=== PATIENT | female | born 2000 | race Caucasian/White ===

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

== ENCOUNTER 2019-11-28 16:02 | Emergency (ER) | payer MEDICAID ==
[2019-11-28 16:15] VITALS: BP 115/78; PULSE 75
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
--- NOTE | 2019-11-29 11:15 | CR ---
Nasal Bone Min 3V CLINICAL HISTORY: Trauma FINDINGS: Patient has a slightly depressed fracture of the distal nasal bones extending to the right. There is a rounded radiopacity over the left orbit. This was found to be a hair clasp. IMPRESSION: Slightly depressed fracture of the right nasal bones
== END 2019-11-28 17:34 | disposition home or self-care (01) ==
LOC: JP.ED 16:02
DX: S02.2XXA Fracture of nasal bones, initial encounter for closed fracture (principal); F17.210 Nicotine dependence, cigarettes, uncomplicated; Y04.0XXA Assault by unarmed brawl or fight, initial encounter
CPT/HCPCS: 70160; 70160-26; 99283; 99283-25

== ENCOUNTER 2020-02-18 13:01 | Emergency (ER) | payer MEDICAID ==
[2020-02-18 13:37] VITALS: BP 125/67; PULSE 76
--- NOTE | 2020-02-18 13:45 | EDM.PDOC ---
ED HPI GENERAL MEDICAL PROBLEM - General Chief Complaint: Back Pain or Injury Stated Complaint: LOWER BACK PAIN Time Seen by Provider: 02/18/20 13:45 Source of Information: Reports: Patient - History of Present Illness INITIAL COMMENTS - FREE TEXT/NARRATIVE: Patient has a history for recurrent acute on chronic back pain. Patient has had MRIs in the past and offered Neurosurgery for MRI findings and back pain. Patient was at the time. Patient has a young son whom she lifts and carries around while caring for him. The child jumped on her back earlier today and back pain got worse with left leg radicular symptoms. Patient has been taking Tylenol but does not recall any other physical therapy stretches or strength training for previous back pain concerns. Patient is again approximately 6 weeks at this time per patient history. Patient has not establish OB care for current . Patient has not applied ice or heat to the area. patient denies numbness/tingling or weakness but radiating pain down posterior left leg and side of foot. 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 Musculoskeletal History: Reports: Fracture, Other (See Below) Other Musculoskeletal History: 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 Neurological History: Reports: Migraines Psychiatric History: Reports: ADD, ADHD, Anxiety, Depression, Mood Swings, Psych Hospitalization(s), Suicide Attempt - Infectious Disease History Infectious Disease History: Reports: Other (See Below) Other Infectious Disease History: STD - Past Surgical History Head Surgeries/Procedures: Reports: None HEENT Surgical History: Reports: None Respiratory Surgical History: Reports: None Neurological Surgical History: Reports: None Musculoskeletal Surgical History: Reports: None Social & Family History - Family History Family Medical History: Noncontributory OBGYN: Reports: Other (See Below) Other OBGYN Family History: mother had preeclampsia - Caffeine Use Caffeine Use: Reports: Soda ED ROS GENERAL - Review of Systems Review Of Systems: Comprehensive ROS is negative, except as noted in HPI. ED EXAM,LOWER BACK PAIN/INJURY - Physical Exam Exam: See Below Exam Limited By: No Limitations General Appearance: Alert, WD/WN, No Apparent Distress Eye Exam: Bilateral Eye: EOMI Ears: Hearing Grossly Normal Throat/Mouth: Normal Voice, No Airway Compromise Respiratory/Chest: No Respiratory Distress, Lungs Clear, Normal Breath Sounds Cardiovascular: Normal Peripheral Pulses, Regular Rate, Rhythm Extremities: Normal Inspection. No: Normal Range of Motion, Non-Tender (left lwoer back and SI joint) Neurological: Alert, Normal Mood/Affect, Normal Dorsiflexion, CN II-XII Intact, Normal Plantar Flexion, No Motor/Sensory Deficits, Oriented x 3. No: Normal Gait (guarded) Psychiatric: Normal Affect, Normal Mood Skin Exam: Warm, Dry, Intact, Normal Color, No Rash Course - Vital Signs Last Recorded V/S: Last Vital Signs Temp 35.6 C L 02/18/20 14:05 Pulse 76 02/18/20 14:05 Resp 12 02/18/20 14:05 BP 125/67 02/18/20 14:05 Pulse Ox 98 02/18/20 14:05 Departure - Departure Time of Disposition: 13:51 Disposition: Home, Self-Care 01 Clinical Impression: Pain of back and lower extremity, Sciatica of left side - Discharge Information Instructions: Piriformis Syndrome, Piriformis Syndrome Rehab-SportsMed, Radicular Pain, Sciatica, What You Need to Know About Chronic Back Pain, How to Use Cold Therapy Referrals: PCP,None [Primary Care Provider] - Forms: ED Department Discharge Additional Instructions: BACK SCIATICA 1. LIMIT LIFTING (<10 LBS/BENDING/TWISTING) X 48 HOURS. 2. TAKE ABOVE MEDICATIONS DIRECTED UNLESS RE-CHECK IN CLINIC 3. PREDNISONE 20 MG DAILY x 5 days FOR INFLAMMATION AND RADICULAR NERVE PAIN. 4. TYLENOL 500-1000MG every 6-8 hours for mild to moderate pain. 6. ICE 15-20MIN ALTERNATE WITH HEAT 15-20 MIN 3-4 TIMES PER DAY. 7. CALL [facility] to ESTABLISH OB CARE (outreach appointment available in Agency. 8. RETURN TO ER FOR WORSENING OR NEW SYMPTOMS, LOSS OF BLADDER/BOWL CONTROL, GROIN NUMBNESS, FEVER, TROUBLE BREATHING, NUMBNESS/TINGLING/WEAKNESS IN LOWER EXTREMITIES, ABDOMINAL PAIN, CONCERNS OR CHANGES. THE DISCHARGE INSTRUCTIONS ARE INTENDED A COMPLEMENT TO AND NOT A REPLACEMENT FOR THE VERBAL INSTRUCTIONS THAT I HAVE PROVIDED YOU TODAY. AFTER GOING OVER THE PLAN OF CARE TONIGHT AND PROVIDING YOU WITH THE VERBAL INSTRUCTIONS AT DISCHARGE YOU HAVE HAD THE OPPORTUNITY TO ASK FURTHER QUESTIONS AND TO CLARIFY UNCERTAINTIES. THANK YOU FOR ALLOWING US TO ASSIST WITH YOUR MEDICAL CONCERNS AND NEEDS. Sciatica What is sciatica? Sciatica is a form of low back pain that runs down your leg, causing pain, numbness, or tingling in the leg. How does it occur? The sciatic nerve is formed by a group of nerves that run from the lower spine down the leg to the foot. Anything that causes irritation along the course of the nerve can cause sciatica. The most common causes are: overuse of your back (lifting something that is too heavy or doing work that uses your back much more than you are used to) injury to your back (slipping and falling, or having something hit your back). Overuse or injury can cause muscle tension or spasm, back sprains, ligament or muscle tears, or joint problems, all of which can irritate the sciatic nerve. Low back pain and sciatica can also be caused by infections, tumors, a ruptured disk in your back, osteoporosis, spondylosis (hardening and stiffening of the spine), or spinal stenosis (narrowing of the spinal canal from bone or soft tissue). What are the symptoms? The main symptom is pain that shoots down from the lower back and buttocks to your leg. You may also have numbness or tingling in your leg. Sometimes your leg muscles are weak. How is it diagnosed? Your healthcare provider will ask about your symptoms and examine your back. If your provider thinks you might have an infection or a bone disease, you may have some lab tests or X-rays, a CT scan, or an MRI. Most people do not need X-rays or other types of scans in the early part of their treatment. If the pain does not get better in a few weeks, or if the symptoms get worse, then special tests may be needed How is it treated? Most people with low back pain and sciatica get better no matter what they do. Often nonprescription medicines for pain and inflammation, such as aspirin, ibuprofen, or naproxen, can ease the pain. Talk to your healthcare provider about whether you should take these medicines. Your provider may prescribe stronger pain medicine or other types of medicines. Your provider may prescribe oral steroids or you may be given a steroid shot into your spine to control pain and inflammation. Ice packs or a heating pad may help reduce pain. (Do not sleep on a heating pad because it could cause rodriguez.) Your provider may also suggest physical therapy. A program of gentle exercise may speed your recovery. If you continue to have symptoms, you may need to have surgery. However, most people who have herniated disks do not need an operation. How long will the effects last? People who have sciatica with back pain recover more slowly than people with other kinds of back pain. However, you will probably begin feeling better within a few days of a back strain or injury if you don't strain your back again and if you take some medicine for pain and inflammation. Often the pain is gone in a week or two. Contact your provider right away if: You have numbness or tingling in the inner part of your thighs (in a saddle distribution). You have any new or increasing weakness in your legs. Call your healthcare provider for a follow-up appointment if: The pain is not getting better. You have new symptoms. How can I take care of myself? If you have low back pain and sciatica, make sure you do not overuse your back. Strict bed rest is no longer recommended. It is better to do your usual activities but: Avoid lifting more than 5 pounds. Avoid frequent bending or other activities that make the pain worse. How can I help prevent sciatica? If you have had back pain and sciatica, you are likely to get it again. To help prevent it in the longterm: Lose weight if you are overweight. Do regular aerobic exercise to keep your back and abdominal muscles in shape (this can be as simple as walking), Learn to lift properly. Bend your knees and hips and keep your back straight when you lift a heavy object. BACK PAIN GENERAL INFORMATION: Back pain is often caused by improper lifting. Prevention is the gunn! See below for proper body mechanics instruction. GOAL: To minimize back pain and to allow early return to normal activities. TREATMENT: 1. Bedrest is very important for at least one to two days after a back injury to allow initial healing to occur. 2. If you find that it helps, you may apply crushed ice in a plastic bag, approximately every other 1/2 hour during the first 24-48 hours after injury. The skin should be protected with a towel between the skin and the cold pack. After 48 hours apply heat to the area. 3. You may find standing or lying to be more comfortable than sitting. 4. Take medication as directed. If any of the following warning signs occur, call your physician immediately or return to the [facility]: " radiation of pain " numbness " tingling of arms or legs " Loss of function of arms or legs " Loss of function of bowel or bladder BACK MECHANICS AND LIFTING SAFELY The safe lift is one that will allow you to accomplish the job with the least amount of strain. GENERAL RULES FOR LIFTING: " Inspect the object, look for sharp edges, grease or moisture. Decide how to hold it. " Clear a path to be sure there is no debris that might trip you. " Plan where and how the object will be placed. " Ask for help if you are not sure you can handle the object. " Hold the object firmly and close to your body while carrying it. " To tack picker the object, bend your knees, not your back; keep your back straight while lifting. " Lift with your legs and come fully upright. " Never twist while you lift. " Poor posture increases stress and strain on muscles and joints in your lower back and neck. " When lifting heavy objects get others to help you and use assistive devices such as a winch, lola or forklift. Low Back Pain What is low back pain? Low back pain is pain and stiffness in the lower back. It is one of the most common reasons people miss work. How does it occur? Low back pain is usually caused when a ligament or muscle holding a vertebra in its proper position is strained. Vertebrae are bones that make up the spinal column through which the spinal cord passes. When these muscles or ligaments become weak, the spine loses its stability, resulting in pain. Because nerves reach all parts of the body from the spinal cord, back problems can lead to pain or weakness in almost any part of the body. Low back pain can occur if your job involves lifting and carrying heavy objects, or if you spend a lot of time sitting or standing in one position or bending over. It can be caused by a fall or by unusually strenuous exercise. It can be brought on by the tension and stress that cause headaches in some people. It can even be brought on by violent sneezing or coughing. People who are overweight may have low back pain because of the added stress on their back. Back pain may occur when the muscles, joints, bones, and connective tissues of the back become inflamed as a result of an infection or an immune system problem. Arthritic disorders as well as some congenital and degenerative conditions may cause back pain. Back pain accompanied by loss of bladder or bowel control, difficulty in moving your legs, or numbness or tingling in your arms or legs may indicate an injury to your spine and nerves, which requires immediate medical treatment. What are the symptoms? Symptoms include: pain in the back or legs stiffness and limited motion. The pain may be continuous or may occur only in certain positions. It may be agg ravated by coughing, sneezing, bending, twisting, or straining during a bowel movement. The pain may occur in only one spot or may spread to other areas, most commonly down the buttocks and into the back of the thigh. A low back strain typically does not produce pain past the knee into the calf or foot. Tingling or numbness in the calf or foot may indicate a herniated disk or pinched nerve. Be sure to see your health care provider if: You have weakness in your leg, especially if you cannot lift your foot, because this may be a sign of nerve damage. You have new bowel or bladder problems as well as back pain, which may be a sign of severe injury to your spinal cord. You have pain that gets worse despite treatment. How is it diagnosed? Your health care provider will review your medical history and examine you. He or she may order x- rays. In certain situations a myelogram, CT scan, or MRI may be ordered. How is it treated? The following are ways to treat low back pain: Using a heating pad or hot water bottle. Resting in bed on a firm mattress. Often it helps to lie on your back with your knees raised. However, some people prefer to lie on their side with their knees bent. Taking aspirin, ibuprofen, or other anti-inflammatory medications; muscle relaxants; or other pain medications if recommended by your health care provider. Having your back massaged by a trained person. Having traction, if recommended by your provider. Wearing a belt or corset to support your back. Talking with a counselor, if your back pain is related to tension caused by emotional problems. Beginning a program of physical therapy, or exercising on your own. Begin a regular exercise program to gently stretch and strengthen your muscles as soon as you can. Your health care provider or physical therapist can recommend exercises that will not only help you feel better but will strengthen your muscles and help avoid back trouble later. When the pain subsides, ask your health care provider about starting an exercise program such as the following: Exercise moderately every day, using stretching and warm-up exercises suggested by your provider or physical therapist. Exercise vigorously for about 30 minutes two or three times a week by walking, swimming, using a stationary bicycle, or doing low-impact aerobics. Participating regularly in an exercise program will not only help your back, it will also help keep you healthier overall. How long will the effects last? The effects of back pain last as long as the cause exists or until your body recovers from the strain, usually a day or two but sometimes weeks. How can I take care of myself? In addition to the treatment described above, keep in mind these suggestions: Use an electric heating pad on a low setting (or a hot water bottle wrapped in a towel to avoid burning yourself) for 20 to 30 minutes. Don't let the heating pad get too hot, and don't fall asleep with it. You could get a burn. Try putting an ice pack wrapped in a towel on your back for 20 minutes, one to four times a day. Set an alarm to avoid frostbite from using the ice pack too long. Put a pillow under your knees when you are lying down. Sleep without a pillow under your head. Lose weight if you are overweight. Practice good posture. Stand with your head up, shoulders straight, chest forward, weight balanced evenly on both feet, and pelvis tucked in. Pain is the best way to police judge the pace you should set in increasing your activity and exercise. Minor discomfort, stiffness, soreness, and mild aches need not interfere with activity. However, limit your activities temporarily if: Your symptoms return. The pain increases when you are more active. The pain increases within 24 hours after a new or higher level of activity. When can I return to my normal activities? Everyone recovers from an injury at a different rate. Return to your activities will be determined by how soon your back recovers, not by how many days or weeks it has been since your injury has occurred. In general, the longer you have symptoms before you start treatment, the longer it will take to get better. The goal of rehabilitation is to return you to your normal activities as soon as is safely possible. If you return too soon you may worsen your injury. It is important that you have fully recovered from your low back pain before you return to any strenuous activity. You must be able to have the same range of motion that you had before your injury. You must be able to walk and twist without pain. What can I do to help prevent low back pain? You can reduce the strain on your back by doing the following: Don't push with your arms when you move a heavy object. Turn around and push backwards so the strain is taken by your legs. Whenever you sit, sit in a straight-backed chair and hold your spine against the back of the chair. Bend your knees and hips and keep your back straight when you lift a heavy object. Avoid lifting heavy objects higher than your waist. Hold packages you carry close to your body, with your arms bent. Use a footrest for one foot when you stand or sit in one spot for a long time. This keeps your back straight. Bend your knees when you bend over. Sit close to the pedals when you drive and use your seat belt and a hard backrest or pillow. Lie on your side with your knees bent when you sleep or rest. It may help to put a pillow between your knees. Put a pillow under your knees when you sleep on your back. Raise the foot of the bed 8 inches to discourage sleeping on your stomach unless you have other problems that require that you keep your head elevated. To rest your back, hold each of these positions for 5 minutes or longer: Lie on your back, bend your knees, and put pillows under your knees. Lie on your back, put a pillow under your neck, bend your knees to a 90- degree angle, and put your lower legs and feet on a chair. Lie on your back, bend your knees, and bring one knee up to your chest and hold it there. Repeat with the other knee, then bring both knees to your chest. When holding your knee to your chest, grab your thigh rather than your lower leg to avoid over flexing your knee. Developed by Tereza Guzman RN, [place], and [facility] [employer]. Sepsis Event Note (ED) - Focused Exam Vital Signs: Vital Signs Temp Pulse Resp BP Pulse Ox 02/18/20 14:05 35.6 C L 76 12 125/67 98 02/18/20 13:34 35.6 C L 76 12 125/67 98
== END 2020-02-18 14:10 | disposition home or self-care (01) ==
LOC: JP.ED 13:01
DX: O99.89 Other specified diseases and conditions complicating pregnancy, childbirth and the puerperium (principal); M54.42 Lumbago with sciatica, left side; Z88.8 Allergy status to other drugs, medicaments and biological substances; Z3A.01 Less than 8 weeks gestation of pregnancy
CPT/HCPCS: 99283

== ENCOUNTER 2020-02-18 21:56 | Emergency (ER) | payer MEDICAID ==
[2020-02-18 22:24] VITALS: BP 119/89; PULSE 80
[2020-02-18] MEDS ORDERED: Lidocaine 2% Viscous Solution 100 ML Bottle MUCMEM PRN (22:37)
[2020-02-18] MEDS ORDERED: Lidocaine 2% Viscous Solution 15 ML Cup ONE (22:45)
[2020-02-18] MEDS ORDERED: Lidocaine 2% Viscous Solution 15 ML Cup PO ONE (22:46)
--- NOTE | 2020-02-18 22:48 | EDM.PDOC ---
ED HPI GENERAL MEDICAL PROBLEM - General Chief Complaint: ENT Problem Stated Complaint: Q TIP STUCK IN LEFT EAR Time Seen by Provider: 02/18/20 22:35 Source of Information: Reports: Patient History Limitations: Reports: No Limitations - History of Present Illness INITIAL COMMENTS - FREE TEXT/NARRATIVE: Patient took a shower this afternoon and was cleaning her ears with a q tip when the q tip head remained stuck in her left ear. Patient has muffled hearing and pain. 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 Musculoskeletal History: Reports: Fracture, Other (See Below) Other Musculoskeletal History: 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 Neurological History: Reports: Migraines Psychiatric History: Reports: ADD, ADHD, Anxiety, Depression, Mood Swings, Psych Hospitalization(s), Suicide Attempt - Infectious Disease History Infectious Disease History: Reports: Other (See Below) Other Infectious Disease History: STD - Past Surgical History Head Surgeries/Procedures: Reports: None HEENT Surgical History: Reports: None Respiratory Surgical History: Reports: None Neurological Surgical History: Reports: None Musculoskeletal Surgical History: Reports: None Social & Family History - Family History Family Medical History: Noncontributory OBGYN: Reports: Other (See Below) Other OBGYN Family History: mother had preeclampsia - Tobacco Use Smoking Status *Q: Never Smoker - Caffeine Use Caffeine Use: Reports: Soda - Recreational Drug Use Recreational Drug Use: No ED ROS ENT - Review of Systems Review Of Systems: Comprehensive ROS is negative, except as noted in HPI. ED EXAM, ENT - Physical Exam Exam: See Below Exam Limited By: No Limitations General Appearance: Alert, WD/WN, Mild Distress (anxious about q tip removal) Eye Exam: Bilateral Eye: EOMI, Normal Inspection Ears: Hearing Loss (left ear due to FB ), Canal Foreign Body (left auditory canal white q tip head noted) Mouth/Throat: Normal Inspection Neck: Normal Inspection, Supple, Full Range of Motion Respiratory/Chest: No Respiratory Distress Cardiovascular: Normal Peripheral Pulses ED ENT PROCEDURES - Foreign Body Removal Consent Obtained: Patient Performing Doctor:: Gita Lin Foreign [facility] Other Location Comment:: Q tip head in left auditory canal Anesthesia Type: Other (see below) (Viscus Lidocaine) Findings: Viscus Lidocaine was instilled in the left ear fro 15-20 minutes: Alligator forceps used to grab and remove q tip head. Patient tolerated well. No bleeding or injury. Course - Vital Signs Last Recorded V/S: Last Vital Signs Temp 36.6 C 02/18/20 22:25 Pulse 80 02/18/20 22:25 Resp 17 02/18/20 22:25 BP 119/89 02/18/20 22:25 Pulse Ox 98 02/18/20 22:25 - Orders/Labs/Meds Meds: Medications Discontinued Medications Generic Name Dose Route Start Last Admin Trade Name Freq PRN Reason Stop Dose Admin Lidocaine HCl 3 ml 02/18/20 22:37 Xylocaine 2% Viscous MUCMEM ASDIRECTED PRN pain Lidocaine HCl 15 ml 02/18/20 22:46 02/18/20 22:47 Xylocaine 2% Viscous PO 02/18/20 22:47 15 ml ONETIME ONE Administration Lidocaine HCl Confirm 02/18/20 22:45 02/18/20 22:57 Xylocaine 2% Viscous Administered 02/18/20 22:46 Not Given Dose 15 ml .ROUTE .STK-MED ONE Departure - Departure Time of Disposition: 23:03 Disposition: Home, Self-Care 01 Clinical Impression: Ear foreign body - Discharge Information Instructions: Ear Foreign Body Referrals: PCP,None [Primary Care Provider] - Forms: ED Department Discharge Sepsis Event Note (ED) - Evaluation Sepsis Screening Result: No Definite Risk - Focused Exam Vital Signs: Vital Signs Temp Pulse Resp BP Pulse Ox 02/18/20 22:25 36.6 C 80 17 119/89 98 02/18/20 22:23 36.6 C 80 17 119/89 98
== END 2020-02-18 23:13 | disposition home or self-care (01) ==
LOC: JP.ED 21:56
DX: T16.2XXA Foreign body in left ear, initial encounter (principal); Z88.8 Allergy status to other drugs, medicaments and biological substances
CPT/HCPCS: 69200; 99282; A9270

== ENCOUNTER 2020-02-23 17:37 | Emergency (ER) | payer MEDICAID ==
[2020-02-23 18:20] VITALS: BP 119/71; PULSE 78
[2020-02-23] MEDS ORDERED: Acetaminophen 500 MG Tab PO ONE (18:22)
--- NOTE | 2020-02-23 18:28 | EDM.PDOC ---
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 Thinks she is Rh type +. Has an OB appt tomorrow. Is under a lot of family stress. Thinks she is 7 weeks gestation. Onset: Gradual Duration: Day(s):, Waxing/Waning Location: Reports: Pelvis Quality: Reports: Other (cramping) Severity: Mild Improves with: Reports: None Worsens with: Reports: Other (unknown) Context: Reports: Other Associated Symptoms: Reports: No Other Symptoms Treatments BREAKDOWN PERSON: Reports: Other (see below) (none) - Related Data Allergies Allergy/AdvReac Type Severity Reaction Status Date / Time drospirenone [From SUSHILA (28)] Allergy Hives Verified 02/18/20 22:25 ethinyl estradiol Allergy Hives Verified 02/18/20 22:25 [From SUSHILA (28)] Home Meds: Home Meds Sertraline [Zoloft] 50 mg PO DAILY 02/23/20 [History] Past Medical History HEENT History: Reports: Otitis Media Respiratory History: Reports: Croup Genitourinary History: Reports: Renal Calculus 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: Reports: Other 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: ELIER-06/04/2018 Musculoskeletal History: Reports: Fracture, Other (See Below) Other Musculoskeletal History: 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 Neurological History: Reports: Migraines Psychiatric History: Reports: ADD, ADHD, Anxiety, Depression, Mood Swings, Psych Hospitalization(s), Suicide Attempt - Infectious Disease History Infectious Disease History: Reports: Other (See Below) Other Infectious Disease History: STD - Past Surgical History Head Surgeries/Procedures: Reports: None HEENT Surgical History: Reports: None Respiratory Surgical History: Reports: None Female Surgical History: Reports: Section Neurological Surgical History: Reports: None Musculoskeletal Surgical History: Reports: None Social & Family History - Family History Family Medical History: Noncontributory OBGYN: Reports: Other (See Below) Other OBGYN Family History: mother had preeclampsia - Tobacco Use Smoking Status *Q: Never Smoker - Caffeine Use Caffeine Use: Reports: Coffee, Soda - Recreational Drug Use Recreational Drug Use: No ED ROS GENERAL - Review of Systems Review Of Systems: See Below Constitutional: Reports: No Symptoms HEENT: Reports: No Symptoms Respiratory: Reports: No Symptoms Cardiovascular: Reports: No Symptoms GI/Abdominal: Reports: No Symptoms : Reports: Other (uterine cramping) Skin: Reports: No Symptoms ED EXAM, GI/ABD - Physical Exam Exam: See Below Exam Limited By: No Limitations General Appearance: Alert, WD/WN, No Apparent Distress Eyes: Bilateral: Normal Appearance Ears: Normal External Exam, Hearing Grossly Normal, Normal TMs Nose: Normal Inspection, No Blood Throat/Mouth: Normal Inspection, Normal Lips, Normal Oropharynx, Normal Voice, No Airway Compromise Head: Atraumatic, Normocephalic Neck: Normal Inspection Respiratory/Chest: No Respiratory Distress, Lungs Clear, Normal Breath Sounds, No Accessory Muscle Use Cardiovascular: Regular Rate, Rhythm, No Edema GI/Abdominal Exam: Soft, Non-Tender, No Distention Back Exam: CVA Tenderness (R), CVA Tenderness (L) Extremities: Normal Inspection, No Pedal Edema Neurological: Alert, Oriented, Normal Cognition Skin Exam: Warm, Dry, Intact, Normal Color, No Rash Course - Vital Signs Last Recorded V/S: Last Vital Signs Temp 35.4 C L 02/23/20 18:18 Pulse 78 02/23/20 18:18 Resp 12 02/23/20 18:18 BP 119/71 02/23/20 18:18 Pulse Ox 98 02/23/20 18:18 - Orders/Labs/Meds Labs: Laboratory Tests 02/23/20 02/23/20 Range/Units 18:30 19:13 HCG, Quant 50989 H (0-6) mIU/mL Urine Color Yellow (YELLOW) Urine Appearance Cloudy A (CLEAR) Urine pH 7.0 (5.0-8.0) Ur Specific Carlos 1.025 (1.008-1.030) Urine Protein Negative (NEGATIVE) mg/dL Urine Glucose (UA) Negative (NEGATIVE) mg/dL Urine Ketones Negative (NEGATIVE) mg/dL Urine Occult Blood Trace-intact H (NEGATIVE) Urine Nitrite Negative (NEGATIVE) Urine Bilirubin Negative (NEGATIVE) Urine Urobilinogen 1.0 (0.2-1.0) EU/dL Ur Leukocyte Esterase Negative (NEGATIVE) Urine RBC 0-5 (0-5) Urine WBC 0-5 (0-5) Ur Epithelial Cells Moderate Amorphous Sediment Not seen Urine Bacteria Moderate Urine Mucus Many Meds: Medications Discontinued Medications Generic Name Dose Route Start Last Admin Trade Name Freq PRN Reason Stop Dose Admin Acetaminophen 1,000 mg 02/23/20 18:22 02/23/20 18:49 Tylenol Extra Strength PO 02/23/20 18:23 1,000 mg ONETIME ONE Administration Departure - Departure Time of Disposition: 19:38 Disposition: Home, Self-Care 01 Condition: Good Clinical Impression: First-trimester bleeding - Discharge Information *PRESCRIPTION DRUG MONITORING PROGRAM REVIEWED*: Not Applicable *COPY OF PRESCRIPTION DRUG MONITORING REPORT IN PATIENT CATHY: Not Applicable Referrals: Juli Barksdale CNM [Primary Care Provider] - Additional Instructions: Drink ample fluids. Acetaminophen as needed for pain relief. Recheck with your provider tomorrow as scheduled. Return if a lot worse. Sepsis Event Note (ED) - Evaluation Sepsis Screening Result: No Definite Risk - Focused Exam Vital Signs: Vital Signs Temp Pulse Resp BP Pulse Ox 02/23/20 18:18 35.4 C L 78 12 119/71 98
== END 2020-02-23 20:34 | disposition home or self-care (01) ==
LOC: JP.ED 17:37
DX: O20.9 Hemorrhage in early pregnancy, unspecified (principal); F32.9 Major depressive disorder, single episode, unspecified; Z79.899 Other long term (current) drug therapy; Z88.8 Allergy status to other drugs, medicaments and biological substances
CPT/HCPCS: 36415; 81001; 84702; 99284; A9270

== ENCOUNTER 2020-03-11 02:50 | Emergency (ER) | payer MEDICAID ==
[2020-03-11 03:12] VITALS: BP 116/75; PULSE 77
[2020-03-11] MEDS ORDERED: Ondansetron 4 MG Tab.DIS PO ONE ×2 (03:23→04:28)
--- NOTE | 2020-03-11 04:25 | EDM.PDOC ---
ED HPI GENERAL MEDICAL PROBLEM - General Chief Complaint: Gastrointestinal Problem Stated Complaint: TROUBLE EATING/DRINKING Time Seen by Provider: 03/11/20 04:00 Source of Information: Reports: Patient, RN History Limitations: Reports: No Limitations - History of Present Illness INITIAL COMMENTS - FREE TEXT/NARRATIVE: 19 yo female at approx 9 weeks into her 2nd presents with about 3 days of nausea. Has not been to the clinic for this. Has had one OB appt so far. No diarrhea or fever. Onset: Gradual Onset Date: 03/08/20 Duration: Day(s): (3), Getting Worse Location: Reports: Generalized Quality: Reports: Other (no pain) Severity: Moderate Improves with: Reports: None Worsens with: Reports: Eating Context: Reports: Other (See HPI) Associated Symptoms: Reports: Nausea/Vomiting Treatments ALUMNI SECRETARY: Reports: Other (see below) (none) denies pain Pain Score (Numeric/FACES): 0 - Related Data Allergies Allergy/AdvReac Type Severity Reaction Status Date / Time drospirenone [From SUSHILA (28)] Allergy Hives Verified 03/11/20 06:15 ethinyl estradiol Allergy Hives Verified 03/11/20 06:15 [From SUSHILA (28)] Home Meds: Home Meds Sertraline [Zoloft] 50 mg PO DAILY 02/23/20 [History] Ondansetron [Zofran ODT] 4 mg PO Q6H PRN #7 tab.dis 03/11/20 [Rx] Past Medical History HEENT History: Reports: Otitis Media Respiratory History: Reports: Croup Genitourinary History: Reports: Renal Calculus IT OPERATIONS SPECIALIST History: Reports: Other IT OPERATIONS SPECIALIST History: ELIER-06/04/2018 Musculoskeletal History: Reports: Fracture, Other (See Below) Other Musculoskeletal History: 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 Neurological History: Reports: Migraines Psychiatric History: Reports: ADD, ADHD, Anxiety, Depression, Mood Swings, Psych Hospitalization(s), Suicide Attempt - Infectious Disease History Infectious Disease History: Reports: Other (See Below) Other Infectious Disease History: STD - Past Surgical History Head Surgeries/Procedures: Reports: None HEENT Surgical History: Reports: None Respiratory Surgical History: Reports: None Female Surgical History: Reports: Section Neurological Surgical History: Reports: None Musculoskeletal Surgical History: Reports: None Social & Family History - Family History Family Medical History: Noncontributory OBGYN: Reports: Other (See Below) Other OBGYN Family History: mother had preeclampsia - Tobacco Use Smoking Status *Q: Current Every Day Smoker Years of Tobacco use: 6 Packs/Tins Daily: 0.1 - Caffeine Use Caffeine Use: Reports: Soda - Recreational Drug Use Recreational Drug Use: No ED ROS GENERAL - Review of Systems Review Of Systems: See Below Constitutional: Reports: Decreased Appetite HEENT: Reports: No Symptoms Respiratory: Reports: No Symptoms Cardiovascular: Reports: No Symptoms Endocrine: Reports: No Symptoms GI/Abdominal: Reports: Nausea, Vomiting. Denies: Black Stool, Bloody Stool, Diarrhea, Distension, Hematemesis, Hematochezia, Melena : Reports: No Symptoms Musculoskeletal: Reports: No Symptoms Skin: Reports: No Symptoms Neurological: Reports: No Symptoms ED EXAM, GI/ABD - Physical Exam Exam: See Below Exam Limited By: No Limitations General Appearance: Alert, WD/WN, No Apparent Distress Eyes: Bilateral: Normal Appearance Ears: Normal External Exam, Normal Canal, Hearing Grossly Normal, Normal TMs Nose: Normal Inspection Throat/Mouth: Normal Inspection, Normal Lips, Normal Oropharynx, Normal Voice, No Airway Compromise Head: Atraumatic, Normocephalic Neck: Normal Inspection Respiratory/Chest: No Respiratory Distress, Lungs Clear, Normal Breath Sounds, No Accessory Muscle Use Cardiovascular: Regular Rate, Rhythm, No Edema GI/Abdominal Exam: Normal Bowel Sounds, Soft, Non-Tender, No Distention Back Exam: Normal Inspection Extremities: Normal Inspection, Normal Range of Motion, Non-Tender, No Pedal Edema Neurological: Alert, Oriented, CN II-XII Intact, Normal Cognition, No Motor/Sensory Deficits Psychiatric: Normal Affect, Normal Mood Skin Exam: Warm, Dry, Intact, Normal Color, No Rash Course - Vital Signs Last Recorded V/S: Last Vital Signs Temp 35.8 C L 03/11/20 03:12 Pulse 77 03/11/20 03:12 Resp 16 03/11/20 03:12 BP 116/75 03/11/20 03:12 Pulse Ox 100 03/11/20 03:12 - Orders/Labs/Meds Orders: Active Orders 24 hr Category Date Time Status Dextrose 5%-0.9% NaCl [Dextrose 5%-Normal Saline] 1,000 Med 03/11/20 06:00 Active ml IV ASDIRECTED Medication Orders Dextrose/Sodium Chloride (Dextrose 5%-Normal Saline) 1,000 mls @ 1,000 mls/hr IV ASDIRECTED HENNA Last Admin: 03/11/20 06:13 Dose: 1,000 mls/hr Documented by: CORNEL Meds: Medications Generic Name Dose Route Start Last Admin Trade Name Freq PRN Reason Stop Dose Admin Dextrose/Sodium Chloride 1,000 mls @ 1,000 mls/hr 03/11/20 06:00 03/11/20 06:13 Dextrose 5%-Normal Saline IV 1,000 mls/hr ASDIRECTED HENNA Administration Discontinued Medications Generic Name Dose Route Start Last Admin Trade Name Freq PRN Reason Stop Dose Admin Ondansetron HCl 4 mg 03/11/20 03:23 03/11/20 03:28 Zofran Odt PO 03/11/20 03:24 4 mg ONETIME ONE Administration Ondansetron HCl 4 mg 03/11/20 04:28 03/11/20 04:31 Zofran Odt PO 03/11/20 04:29 4 mg ONETIME ONE Administration Departure - Departure Time of Disposition: 07:20 Disposition: Home, Self-Care 01 Condition: Fair Clinical Impression: Morning sickness, Mild dehydration - Discharge Information *PRESCRIPTION DRUG MONITORING PROGRAM REVIEWED*: Not Applicable *COPY OF PRESCRIPTION DRUG MONITORING REPORT IN PATIENT CATHY: Not Applicable Prescriptions: Ondansetron [Zofran ODT] 4 mg PO Q6H PRN #7 tab.dis PRN Reason: Nausea Instructions: Morning Sickness, [id number] Referrals: Juli Barksdale CNM [Primary Care Provider] - Forms: ED Department Discharge Additional Instructions: Zofran every 6 hrs as needed for nausea control. Eat soda crackers and sips of juice, Gatorade, or water to maintain hydration. See your doctor on Friday if symptoms persist. Sepsis Event Note (ED) - Evaluation Sepsis Screening Result: No Definite Risk - Focused Exam Vital Signs: Vital Signs Temp Pulse Resp BP Pulse Ox 03/11/20 03:12 35.8 C L 77 16 116/75 100 03/11/20 03:11 35.8 C L 77 16 116/75 100 - My Orders Last 24 Hours: My Active Orders 03/11/20 06:00 Dextrose 5%-0.9% NaCl [Dextrose 5%-Normal Saline] 1,000 ml IV ASDIRECTED - Assessment/Plan Last 24 Hours: My Active Orders 03/11/20 06:00 Dextrose 5%-0.9% NaCl [Dextrose 5%-Normal Saline] 1,000 ml IV ASDIRECTED
[2020-03-11] MEDS ORDERED: Dextrose 5%-0.9% NaCl 1,000 ML IV SCH (06:00)
== END 2020-03-11 07:17 | disposition home or self-care (01) ==
LOC: JP.ED 02:50
DX: O99.281 Endocrine, nutritional and metabolic diseases complicating pregnancy, first trimester (principal); E86.0 Dehydration; O99.341 Other mental disorders complicating pregnancy, first trimester; F41.9 Anxiety disorder, unspecified; F32.9 Major depressive disorder, single episode, unspecified; O99.331 Smoking (tobacco) complicating pregnancy, first trimester; F17.210 Nicotine dependence, cigarettes, uncomplicated; Z3A.09 9 weeks gestation of pregnancy; Z88.8 Allergy status to other drugs, medicaments and biological substances; Z79.899 Other long term (current) drug therapy
CPT/HCPCS: 96360; 99283; A9270

== ENCOUNTER 2020-03-30 14:38 | Emergency (ER) | payer MEDICAID ==
[2020-03-30 14:52] VITALS: BP 125/67; PULSE 81
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
== END 2020-03-30 15:35 | disposition home or self-care (01) ==
LOC: JP.ED 14:38
DX: O9A.211 Injury, poisoning and certain other consequences of external causes complicating pregnancy, first trimester (principal); S30.1XXA Contusion of abdominal wall, initial encounter; Z88.8 Allergy status to other drugs, medicaments and biological substances; O99.341 Other mental disorders complicating pregnancy, first trimester; F41.9 Anxiety disorder, unspecified; F32.9 Major depressive disorder, single episode, unspecified; O99.331 Smoking (tobacco) complicating pregnancy, first trimester; Z79.899 Other long term (current) drug therapy; Z3A.12 12 weeks gestation of pregnancy
CPT/HCPCS: 99282; 99283

== ENCOUNTER 2020-04-29 02:20 | Emergency (ER) | payer MEDICAID ==
[2020-04-29 02:44] VITALS: BP 108/66; PULSE 73
--- NOTE | 2020-04-29 03:10 | EDM.PDOC ---
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 Onset: Today, Sudden, Other (pt fell on the steps this pm. ) Duration: Hour(s): Location: Reports: Abdomen, Back Associated Symptoms: Reports: No Other Symptoms Lower Back Pain Score (Numeric/FACES): 6 - Related Data Allergies Allergy/AdvReac Type Severity Reaction Status Date / Time drospirenone [From SUSHILA (28)] Allergy Hives Verified 04/29/20 02:25 ethinyl estradiol Allergy Hives Verified 04/29/20 02:25 [From SUSHILA (28)] Home Meds: Home Meds No122/Iron/Folic Acid [ Multi Tablet] 1 tab PO DAILY 04/29/20 [History] Past Medical History HEENT History: Reports: Otitis Media Respiratory History: Reports: Croup Genitourinary History: Reports: Renal Calculus MEDICAL SCIENTIFIC OFFICER History: Reports: Other MEDICAL SCIENTIFIC OFFICER History: ELIER b 08/2021 Musculoskeletal History: Reports: Fracture, Other (See Below) Other Musculoskeletal History: 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 Neurological History: Reports: Migraines Psychiatric History: Reports: ADD, ADHD, Anxiety, Depression, Mood Swings, Psych Hospitalization(s), Suicide Attempt - Infectious Disease History Infectious Disease History: Reports: Chicken Pox Other Infectious Disease History: STD - Past Surgical History Female Surgical History: Reports: Section Social & Family History - Family History Family Medical History: Noncontributory OBGYN: Reports: Other (See Below) Other OBGYN Family History: mother had preeclampsia - Tobacco Use Smoking Status *Q: Current Every Day Smoker Years of Tobacco use: 6 Packs/Tins Daily: 0.5 Second Hand Smoke Exposure: Yes - Caffeine Use Caffeine Use: Reports: Soda - Recreational Drug Use Recreational Drug Use: No ED ROS GENERAL - Review of Systems Review Of Systems: See Below Constitutional: Reports: No Symptoms HEENT: Reports: No Symptoms Respiratory: Reports: No Symptoms Cardiovascular: Reports: No Symptoms Endocrine: Reports: No Symptoms GI/Abdominal: Reports: Abdominal Pain, Other (pt is 16 week and she fell on the steps and hit the rt side of her abdoman . She is 16 week preg and she is now having pain at the level of a 7 in her rt lower abdoman. She is not having spotting. ) : Reports: No Symptoms Skin: Reports: No Symptoms Neurological: Reports: No Symptoms ED EXAM - Physical Exam Exam: See Below Text/Narrative:: pt arrived with pain in the rt lower abdoman which she is rating at a 7. She has chronic back problems. She is now having pain in the left buttock area going down her leg. She has had this on and off in the past. Exam Limited By: No Limitations General Appearance: Alert, Anxious, Moderate Distress Ears: Normal TMs Nose: Normal Inspection Throat/Mouth: Normal Inspection Head: Atraumatic Neck: Normal Inspection Respiratory/Chest: No Respiratory Distress Cardiovascular: Regular Rate, Rhythm GI/Abdominal Exam: Tender, Other (pt has significant tenderness in the rt lower abdoman. ) Rectal Exam: Deferred Back Exam: Other (pt has a positive straight leg raising sign on the left. ) Extremities: Normal Inspection Neurological: Alert, Oriented, Normal Cognition Psychiatric: Anxious Course - Vital Signs Last Recorded V/S: Last Vital Signs Temp 35.5 C L 04/29/20 02:43 Pulse 73 04/29/20 02:43 Resp 16 04/29/20 02:43 BP 108/66 04/29/20 02:43 Pulse Ox 99 04/29/20 02:43 - Orders/Labs/Meds Orders: Active Orders 24 hr Category Date Time Status OB Ltd 1 or More Fetus [US] Stat Exams 04/29/20 03:23 Ordered UA W/MICROSCOPIC [URIN] Urgent Lab 04/29/20 03:07 Ordered Meds: Medications Discontinued Medications Generic Name Dose Route Start Last Admin Trade Name Freq PRN Reason Stop Dose Admin Acetaminophen 650 mg 04/29/20 03:23 04/29/20 03:32 Tylenol PO 04/29/20 03:24 650 mg NOW ONE Administration - Re-Assessments/Exams Free Text/Narrative Re-Assessment/Exam: 04/29/20 04:20 pt had a Pelvic Us which was neg. Baby is right on for measurementa. Departure - Departure Time of Disposition: 04:18 Disposition: Home, Self-Care 01 Condition: Fair Clinical Impression: Abdominal muscle pain, Low back pain, 16 weeks gestation of - Discharge Information Referrals: Juli Barksdale CNM [Primary Care Provider] - Forms: ED Department Discharge Care Plan Goals: ice to the low back and rt groin area, tylenol 650 q6h prn for pain, rtc if increased problems. Sepsis Event Note (ED) - Evaluation Sepsis Screening Result: No Definite Risk - Focused Exam Vital Signs: Vital Signs Temp Pulse Resp BP Pulse Ox 04/29/20 02:43 35.5 C L 73 16 108/66 99 - My Orders Last 24 Hours: My Active Orders 04/29/20 03:07 UA W/MICROSCOPIC [URIN] Urgent 04/29/20 03:23 OB Ltd 1 or More Fetus [US] Stat - Assessment/Plan Last 24 Hours: My Active Orders 04/29/20 03:07 UA W/MICROSCOPIC [URIN] Urgent 04/29/20 03:23 OB Ltd 1 or More Fetus [US] Stat
[2020-04-29] MEDS ORDERED: Acetaminophen 325 MG Tab PO ONE (03:23)
--- NOTE | 2020-04-29 04:59 | CRLUS ---
INDICATION: Right-sided abdominal pain after fall TECHNIQUE: Ultrasound OB pelvis transabdominal. Real-time piper-scale imaging of the fetus was performed with anatomic survey limited to biometric measurements. COMPARISON: None FINDINGS: Sonographic imaging demonstrates a single intrauterine gestation. A Gillett Ojeda contraction is seen in the anterior myometrium. heart rate: 167 bpm Orientation: Cephalic Placenta: Posterior without evidence of placenta previa or abruption on submitted images Amniotic fluid: Subjectively normal Cervix: 3.4 cm in length The composite ultrasound gestational age is calculated at 16 weeks, 3 days with an estimated sonographic due date of 10/11/2020. The estimated weight is 151 +/-22 grams which lies at the 69 %. The following biometric measurements were obtained: Biparietal diameter: 3.3 cm Head circumference: 12.6 cm Abdominal circumference: 10.2 cm Femur length: 2.1 cm IMPRESSION: 1. Single viable intrauterine with an estimated gestational age of 16 weeks, 3 days. No sonographic correlate for the patient`s symptoms seen. Dictated by Faraz Samuels MD @ 04/29/2020 4:58:01 AM Dictated by: Faraz Samuels MD @ 04/29/2020 04:58:09 (Electronically Signed)
== END 2020-04-29 04:42 | disposition home or self-care (01) ==
LOC: JP.ED 02:20
DX: O99.89 Other specified diseases and conditions complicating pregnancy, childbirth and the puerperium (principal); M54.5 Low back pain; R10.31 Right lower quadrant pain; O99.332 Smoking (tobacco) complicating pregnancy, second trimester; F17.210 Nicotine dependence, cigarettes, uncomplicated; Z88.8 Allergy status to other drugs, medicaments and biological substances; Z3A.16 16 weeks gestation of pregnancy
CPT/HCPCS: 76815; 99284; A9270; 99282

== ENCOUNTER 2020-05-20 15:42 | Emergency (ER) | payer MEDICAID ==
[2020-05-20 15:57] VITALS: BP 124/71; PULSE 82
[2020-05-20] MEDS ORDERED: Sodium Chloride 0.9% 1,000 ML IV SCH ×2 (16:30→17:15)
--- NOTE | 2020-05-20 16:36 | EDM.PDOC ---
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 She has been working 7 days per week and she is on her feet alot. She is feeling dizzy and she feels crampy in her abdoman. She has not been drinking enough fluid. Onset: Gradual, Other ( last 2 days, ) Duration: Hour(s): Location: Reports: Abdomen, Generalized Associated Symptoms: Reports: Weakness - Related Data Allergies Allergy/AdvReac Type Severity Reaction Status Date / Time drospirenone [From SUSHILA (28)] Allergy Hives Verified 04/29/20 02:25 ethinyl estradiol Allergy Hives Verified 04/29/20 02:25 [From SUSHILA (28)] Home Meds: Home Meds No122/Iron/Folic Acid [ Multi Tablet] 1 tab PO DAILY 04/29/20 [History] Past Medical History HEENT History: Reports: Otitis Media Respiratory History: Reports: Croup Genitourinary History: Reports: Renal Calculus 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 Musculoskeletal History: Reports: Fracture, Other (See Below) Other Musculoskeletal History: 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 Neurological History: Reports: Migraines Psychiatric History: Reports: ADD, ADHD, Anxiety, Depression, Mood Swings, Psych Hospitalization(s), Suicide Attempt - Infectious Disease History Infectious Disease History: Reports: Chicken Pox Other Infectious Disease History: STD - Past Surgical History Head Surgeries/Procedures: Reports: None Female Surgical History: Reports: Section Social & Family History - Family History Family Medical History: Noncontributory OBGYN: Reports: Other (See Below) Other OBGYN Family History: mother had preeclampsia - Tobacco Use Smoking Status *Q: Current Every Day Smoker Years of Tobacco use: 5 Packs/Tins Daily: 0.5 - Caffeine Use Caffeine Use: Reports: Soda - Recreational Drug Use Recreational Drug Use: No ED ROS GENERAL - Review of Systems Review Of Systems: See Below Constitutional: Reports: Fatigue, Other (pt has not been drinking enough fluid. ) HEENT: Reports: No Symptoms Respiratory: Reports: No Symptoms Cardiovascular: Reports: No Symptoms Endocrine: Reports: No Symptoms GI/Abdominal: Reports: Other ( crampy lower abdomanal pain. ) : Reports: No Symptoms Musculoskeletal: Reports: No Symptoms Skin: Reports: No Symptoms Neurological: Reports: No Symptoms ED EXAM, RENAL/ - Physical Exam Exam: See Below Text/Narrative:: pt is feeling weak and fatiqued. She has not been drinking enough fluid. She is 19 weeks preg. She has been working 7 days per week. Exam Limited By: No Limitations General Appearance: Alert, Anxious, Mild Distress, Other ( mild cramps. ) Ears: Normal TMs Nose: Normal Inspection Throat/Mouth: Normal Inspection Head: Atraumatic Neck: Normal Inspection Respiratory/Chest: No Respiratory Distress Cardiovascular: Regular Rate, Rhythm GI/Abdominal: Soft, Non-Tender, Other (pt had good heart tones at 160, ) Rectal (Female) Exam: Deferred Back Exam: Normal Inspection Extremities: Normal Inspection Neurological: Alert, Oriented Course - Vital Signs Last Recorded V/S: Last Vital Signs Temp 36.5 C 05/20/20 16:42 Pulse 82 05/20/20 16:42 Resp 16 05/20/20 16:42 BP 124/71 05/20/20 16:42 Pulse Ox 98 05/20/20 16:42 - Orders/Labs/Meds Orders: Active Orders 24 hr Category Date Time Status CULTURE URINE [RM] Stat Lab 05/20/20 16:53 Received Labs: Laboratory Tests 05/20/20 05/20/20 05/20/20 Range/Units 16:35 16:35 16:35 WBC 8.7 (4.5-11.0) K/uL RBC 3.86 (3.30-5.50) M/uL Hgb 12.0 (12.0-15.0) g/dL Hct 34.9 L (36.0-48.0) % MCV 90 (80-98) fL MCH 31 (27-31) pg MCHC 34 (32-36) % Plt Count 230 (150-400) K/uL Neut % (Auto) 72 H (36-66) % Lymph % (Auto) 19 L (24-44) % [place] % (Auto) 9 H (2-6) % Eos % (Auto) 1 L (2-4) % Baso % (Auto) 0 (0-1) % Sodium 137 L (140-148) mmol/L Potassium 3.7 (3.6-5.2) mmol/L Chloride 104 (100-108) mmol/L Carbon Dioxide 24 (21-32) mmol/L Anion Gap 12.7 (5.0-14.0) mmol/L BUN 7 (7-18) mg/dL Creatinine 0.6 (0.6-1.0) mg/dL Est Cr Clr Drug Dosing 112.86 mL/min Estimated GFR (MDRD) > 60 (>60) Glucose 90 (74-106) mg/dL Calcium 8.8 (8.5-10.1) mg/dL Total Bilirubin 0.4 (0.2-1.0) mg/dL AST 14 L (15-37) U/L ALT 10 L (12-78) U/L Alkaline Phosphatase 47 (46-116) U/L Total Protein 6.3 L (6.4-8.2) g/dL Albumin 3.0 L (3.4-5.0) g/dL Globulin 3.3 (2.3-3.5) g/dL Albumin/Globulin Ratio 0.9 L (1.2-2.2) Urine Color Yellow (YELLOW) Urine Appearance Slightly cloudy A (CLEAR) Urine pH 6.5 (5.0-8.0) Ur Specific [place] 1.025 (1.008-1.030) Urine Protein Negative (NEGATIVE) mg/dL Urine Glucose (UA) Negative (NEGATIVE) mg/dL Urine Ketones Negative (NEGATIVE) mg/dL Urine Occult Blood Trace-intact H (NEGATIVE) Urine Nitrite Negative (NEGATIVE) Urine Bilirubin Negative (NEGATIVE) Urine Urobilinogen 1.0 (0.2-1.0) EU/dL Ur Leukocyte Esterase Negative (NEGATIVE) Urine RBC Not seen (0-5) Urine WBC 0-5 (0-5) Ur Epithelial Cells Many Urine Bacteria Many Urine Mucus Moderate Meds: Medications Discontinued Medications Generic Name Dose Route Start Last Admin Trade Name Freq PRN Reason Stop Dose Admin Sodium Chloride 1,000 mls @ 999 mls/hr 05/20/20 16:30 05/20/20 16:42 Normal Saline IV 999 mls/hr ASDIRECTED HENNA Administration Sodium Chloride 1,000 mls @ 999 mls/hr 05/20/20 17:15 05/20/20 18:52 Normal Saline IV 999 mls/hr ASDIRECTED [facility] Administration - Re-Assessments/Exams Free Text/Narrative Re-Assessment/Exam: 05/20/20 17:05 pt had very concentrated urine, her electrolytes look ok. She will be given 2 liters of fluid. She will not work for the next 2 days so she can hydrate and rest. Departure - Departure Time of Disposition: 16:45 Disposition: Home, Self-Care 01 Condition: Fair Clinical Impression: Dehydration, Second trimester - Discharge Information Instructions: Dehydration, Adult, [id number], Second Trimester of , [id number] Referrals: Juli Barksdale CNM [Primary Care Provider] - Forms: ED Department Discharge Care Plan Goals: no work for the next 2 days, push fluids, rtc if cramping should get worse or any spotting. - My Orders Last 24 Hours: My Active Orders 05/20/20 16:53 CULTURE URINE [RM] Stat - Assessment/Plan Last 24 Hours: My Active Orders 05/20/20 16:53 CULTURE URINE [RM] Stat
== END 2020-05-20 18:54 | disposition home or self-care (01) ==
LOC: JP.ED 15:42
DX: O99.282 Endocrine, nutritional and metabolic diseases complicating pregnancy, second trimester (principal); E86.0 Dehydration; O99.332 Smoking (tobacco) complicating pregnancy, second trimester; F17.210 Nicotine dependence, cigarettes, uncomplicated; Z98.890 Other specified postprocedural states; Z88.8 Allergy status to other drugs, medicaments and biological substances; Z3A.19 19 weeks gestation of pregnancy
CPT/HCPCS: 36415; 80053; 81001; 85025; 87086; 96360; 96361; 99284; J7030

== ENCOUNTER 2020-06-29 19:56 | Emergency (ER) | payer MEDICAID | END 2020-06-29 21:07 | disposition left against medical advice (07) | LOC: JP.ED 19:56 | DX: Z53.21 Procedure and treatment not carried out due to patient leaving prior to being seen by health care provider (principal) ==

== ENCOUNTER 2020-10-06 07:56 | Inpatient (IN) | payer MEDICAID ==
[~2020-10-06 07:56] MED LIST: Oxytocin 10 Units/1 ML SDV ONE; cefOXitin 2 GM Vial ONE; ePHEDrine 50 MG/ML SDV ONE
[2020-10-06] MEDS ORDERED: Lactated Ringers 1,000 ML ONE ×2 (08:31→09:35)
[2020-10-06] MEDS ORDERED: Sodium Chloride 0.9% 1,000 ML IV ONE (09:00)
[2020-10-06] MEDS ORDERED: Benzocaine 20% Top Spray 56 GM Bottle TOP PRN (09:19)
[2020-10-06] MEDS ORDERED: Witch Hazel Medicated Pads 100/Jar TOP PRN (09:19)
[2020-10-06] MEDS ORDERED: Naloxone 0.4 MG/ML SDV IVPUSH PRN (09:19)
[2020-10-06] MEDS ORDERED: Lanolin 100% Cream 40 GM Tube TOP PRN (09:19)
[2020-10-06] MEDS ORDERED: Bisacodyl 10 MG Supp RECTAL PRN (09:19)
[2020-10-06] MEDS ORDERED: Simethicone 80 MG Tab.Chew PO PRN (09:19)
[2020-10-06] MEDS ORDERED: Ondansetron 4 MG Tab.DIS PO PRN (09:19)
[2020-10-06] MEDS ORDERED: diphenhydrAMINE 50 MG/ML SDV IVPUSH PRN (09:19)
[2020-10-06] MEDS ORDERED: ePHEDrine 50 MG/ML SDV IVPUSH PRN (09:19)
[2020-10-06] MEDS ORDERED: Ondansetron 4 MG/2 ML SDV ONE (09:41)
[2020-10-06] MEDS ORDERED: Dexamethasone 4 MG/ML SDV ONE (09:41)
[2020-10-06] MEDS ORDERED: fentaNYL 100 MCG/2 ML SDV IVPUSH ONE (10:19)
[2020-10-06] MEDS ORDERED: fentaNYL 100 MCG/2 ML SDV ONE (10:19)
[2020-10-06] MEDS ORDERED: hydrOXYzine HCL 100 MG/2 ML SDV ONE (10:20)
[2020-10-06] MEDS: fentaNYL 100 MCG/2 ML SDV IVPUSH PRN ×3 (11:36→13:48)
--- NOTE | 2020-10-06 14:27 | OR ---
DATE OF PROCEDURE: 10/06/2020 SURGEON: Kyle Steen MD PROCEDURE: Repeat section with aftercare. POST SPLITTER: Juli Barksdale CNM. RISKS: Risks, benefits, alternatives, and limitations including, but not limited to infection, bleeding, injury to bowel, bladder, baby, blood vessels, intestines, chronic wounds, chronic pain, and other risks not listed here were explained to the patient and she wished to proceed. PROCEDURE IN DETAIL: The patient was placed in supine position. The previous Pfannenstiel incision was opened using a 15 blade. This was carried down to electrocautery to the external oblique aponeurosis which was also opened sharply. The peritoneum was entered sharply. No evidence of trauma or injury was noted. A muscle sparing technique was then used to enlarge the rectus opening. The bladder was identified and deflected inferiorly. Using blunt dissection, the uterus was opened. This was then opened further with bandage scissors. The baby was then delivered without difficulty. The placenta was then delivered. The uterus was delivered extracorporeally. The placenta was checked for remnant material which none was noted. This was then closed with 3 layers of #1 Vicryl suture in a running locked fashion. The abdomen was inspected for clots, which there was minimal. The rectus sheath was then approximated using #1 Vicryl suture. The fascia was closed with #1 Vicryl running x2. Subcutaneous tissues were closed with 3-0 Vicryl. Skin was closed with 4-0 Vicryl. Dermabond was applied. The patient tolerated the procedure well. Kyle Steen MD /[id number]
[2020-10-06] MEDS: Ibuprofen 800 MG Tab PO PRN ×2 (14:37→22:40)
[2020-10-06] MEDS: Acetaminophen/HYDROcodone 325-5 MG Tab PO PRN ×2 (15:36→19:32)
[2020-10-07] MEDS: Acetaminophen/HYDROcodone 325-5 MG Tab PO PRN ×5 (00:01→19:30)
[2020-10-07] MEDS: Ibuprofen 800 MG Tab PO PRN ×2 (07:29→14:50)
[2020-10-07] MEDS ORDERED: Prenatal Multivitamin with Calcium/Folic Acid/Iron Tab PO SCH (09:00)
--- NOTE | 2020-10-07 12:28 | PN ---
DATE OF SERVICE: 10/07/2020 SUBJECTIVE: Patient doing well. Pain is well controlled. No nausea, vomiting, shortness of breath, or chest pain. OBJECTIVE: VITAL SIGNS: Stable. She is afebrile. CARDIOVASCULAR: Regular rhythm and rate. RESPIRATORY: Lungs are clear to auscultation bilaterally. SKIN: Incision healing well. ASSESSMENT: Status post section. PLAN: Continue same plan, regular diet. Engle is out. No further labs are needed. Kyle Steen MD /[id number]
[2020-10-08] MEDS: Acetaminophen/HYDROcodone 325-5 MG Tab PO PRN ×2 (01:29→07:44)
[2020-10-08] MEDS: Ibuprofen 800 MG Tab PO PRN (07:45)
[2020-10-08 07:48] VITALS: BP 124/77; PULSE 78
--- NOTE | 2020-10-13 10:07 | DISCH ---
DISCHARGE DIAGNOSIS: Status post section. SUMMARY OF HOSPITAL COURSE: Pleasant 20-year-old female who underwent uneventful section. Prior to discharge, her pain is well controlled. She is having no nausea, vomiting, shortness of breath, or chest pain. FOLLOWUP: With Surgery in 7 to 14 days. ACTIVITY: No lifting greater than 30 pounds x30 days. DISCHARGE MEDICATIONS: Please see OCT. /[id number]
== END 2020-10-08 13:49 | disposition home or self-care (01) | DRG 788 ==
LOC: JP.SDS 07:56 → JP.MS 09:35
PROVIDERS: ADMIT Advanced Practice Midwife; ATTEND Surgery
PROC: 10D00Z1 Extraction of Products of Conception, Low, Open Approach (ICD-10-PCS; principal; 2020-10-06)
DX: O34.211 Maternal care for low transverse scar from previous cesarean delivery (principal); Z37.0 Single live birth; Z3A.39 39 weeks gestation of pregnancy; O99.334 Smoking (tobacco) complicating childbirth; F17.210 Nicotine dependence, cigarettes, uncomplicated
CPT/HCPCS: 36415; 59409; 80048; 80053; 80305-QW; 85025; 85027; 86850; 86900; 86901; 88307; A9270-GY; J0694; J1100; J2405; J2590; J3010; J7030; J7120

== ENCOUNTER 2021-06-19 12:29 | Emergency (ER) | payer MEDICAID, OTHER, SELFPAY ==
[2021-06-19 13:47] VITALS: BP 117/76; PULSE 67
--- NOTE | 2021-06-19 14:31 | EDM.PDOC ---
ED HPI GENERAL MEDICAL PROBLEM - General Chief Complaint: ENT Problem Stated Complaint: COUGH,SORE THROAT Time Seen by Provider: 06/19/21 14:00 Source of Information: Reports: Patient History Limitations: Reports: No Limitations - History of Present Illness INITIAL COMMENTS - FREE TEXT/NARRATIVE: 20-year-old female in with a sore throat for the past 3 days. It is become much worse over the past 12 hours. No other symptoms such as cough or cold symptoms, no fevers or chills. She is here with both her children who have coughs and cold symptoms. Onset: Gradual Duration: Day(s): (3 days) Associated Symptoms: Reports: No Other Symptoms Throat Pain Score (Numeric/FACES): 6 - Related Data Allergies Allergy/AdvReac Type Severity Reaction Status Date / Time drospirenone [From SUSHILA (28)] Allergy Hives Verified 06/19/21 13:53 ethinyl estradiol Allergy Hives Verified 06/19/21 13:53 [From SUSHILA (28)] Home Meds: Home Meds Cyclobenzaprine [Flexeril] 10 mg PO TID PRN 06/19/21 [History] Naproxen 500 mg PO BID PRN 06/19/21 [History] Past Medical History HEENT History: Reports: Otitis Media Respiratory History: Reports: Croup Genitourinary History: Reports: Renal Calculus 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 Musculoskeletal History: Reports: Fracture, Other (See Below) Other Musculoskeletal History: 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 Neurological History: Reports: Migraines Psychiatric History: Reports: ADD, ADHD, Anxiety, Depression, Mood Swings, Psych Hospitalization(s), Suicide Attempt - Infectious Disease History Infectious Disease History: Reports: Chicken Pox Other Infectious Disease History: STD - Past Surgical History Head Surgeries/Procedures: Reports: None HEENT Surgical History: Reports: None Cardiovascular Surgical History: Reports: None Respiratory Surgical History: Reports: None GI Surgical History: Reports: None Female Surgical History: Reports: Section Endocrine Surgical History: Reports: None Neurological Surgical History: Reports: None Musculoskeletal Surgical History: Reports: None Oncologic Surgical History: Reports: None Dermatological Surgical History: Reports: None Social & Family History - Family History Family Medical History: No Pertinent Family History OBGYN: Reports: Other (See Below) Other OBGYN Family History: mother had preeclampsia - Tobacco Use Tobacco Use Status *Q: Current Every Day Tobacco User Years of Tobacco use: 6 Packs/Tins Daily: 0.5 - Caffeine Use Caffeine Use: Reports: Soda ED ROS ENT - Review of Systems Review Of Systems: See Below Constitutional: Reports: Malaise. Denies: Fever, Chills HEENT: Reports: Throat Pain. Denies: Ear Pain Respiratory: Denies: Shortness of Breath, Cough Cardiovascular: Denies: Chest Pain GI/Abdominal: Denies: Nausea, Vomiting : Reports: No Symptoms Musculoskeletal: Reports: No Symptoms Skin: Reports: No Symptoms Neurological: Denies: Headache ED EXAM, ENT - Physical Exam Exam: See Below Exam Limited By: No Limitations General Appearance: Alert, No Apparent Distress Eye Exam: Bilateral Eye: Normal Inspection Ears: Normal TMs Mouth/Throat: Normal Inspection Head: Atraumatic Neck: No: Lymphadenopathy (R), Lymphadenopathy (L) Respiratory/Chest: No Respiratory Distress, Lungs Clear Cardiovascular: Regular Rate, Rhythm Neurological: Alert, Oriented Psychiatric: Normal Affect, Normal Mood Skin: Warm, Dry Course - Vital Signs Last Recorded V/S: Last Vital Signs Temp 96.3 F L 06/19/21 13:49 Pulse 67 06/19/21 13:49 Resp 20 06/19/21 13:49 BP 117/76 06/19/21 13:49 Pulse Ox 99 06/19/21 13:49 - Orders/Labs/Meds Orders: Active Orders 24 hr Category Date Time Status STREP SCRN A RAPID W CULT CONF [RM] Routine Lab 06/19/21 14:07 Results - Re-Assessments/Exams Free Text/Narrative Re-Assessment/Exam: 06/19/21 14:31 A rapid strep was obtained 06/19/21 14:54 Strep is negative, encouraged ibuprofen and warm liquids for the next couple of days and recheck if not improving. Departure - Departure Time of Disposition: 15:11 Disposition: Home, Self-Care 01 Clinical Impression: Viral pharyngitis - Discharge Information Instructions: Pharyngitis, [id number] Referrals: PCP,None [Primary Care Provider] - Forms: ED Department Discharge Care Plan Goals: Ibuprofen and warm fluids would be helpful for the next couple of days. Stay hydrated, rest, and recheck in 2 or 3 days if not improving satisfactorily. Sepsis Event Note (ED) - Evaluation Sepsis Screening Result: No Definite Risk - Focused Exam Vital Signs: Vital Signs Temp Pulse Resp BP Pulse Ox 06/19/21 13:49 96.3 F L 67 20 117/76 99 06/19/21 13:46 96.3 F L 67 20 117/76 99 - My Orders Last 24 Hours: My Active Orders 06/19/21 14:07 STREP SCRN A RAPID W CULT CONF [RM] Routine - Assessment/Plan Last 24 Hours: My Active Orders 06/19/21 14:07 STREP SCRN A RAPID W CULT CONF [RM] Routine
== END 2021-06-19 15:11 | disposition home or self-care (01) ==
LOC: JP.ED 12:29
DX: J02.9 Acute pharyngitis, unspecified (principal); Z88.8 Allergy status to other drugs, medicaments and biological substances; Z72.0 Tobacco use
CPT/HCPCS: 87081; 87880-QW; 99283

== ENCOUNTER 2021-09-12 07:21 | Emergency (ER) | payer MEDICAID ==
[2021-09-12 07:32] VITALS: BP 124/75; PULSE 85
== END 2021-09-12 08:15 | disposition home or self-care (01) ==
LOC: JP.ED 07:21
DX: O99.891 Other specified diseases and conditions complicating pregnancy (principal); M54.50 Low back pain, unspecified; Z3A.01 Less than 8 weeks gestation of pregnancy; Z88.8 Allergy status to other drugs, medicaments and biological substances
CPT/HCPCS: 99283

== ENCOUNTER 2021-09-13 16:32 | Emergency (ER) | payer OTHER, MEDICAID | END 2021-09-13 16:54 | disposition left against medical advice (07) | LOC: JP.ED 16:32 | DX: Z53.21 Procedure and treatment not carried out due to patient leaving prior to being seen by health care provider (principal) ==

== ENCOUNTER 2021-09-14 09:29 | Emergency (ER) | payer OTHER, MEDICAID ==
[2021-09-14 09:48] VITALS: BP 132/74; PULSE 89
== END 2021-09-14 10:47 | disposition home or self-care (01) ==
LOC: JP.ED 09:29
DX: O99.891 Other specified diseases and conditions complicating pregnancy (principal); R10.9 Unspecified abdominal pain; O9A.23 Injury, poisoning and certain other consequences of external causes complicating the puerperium; S80.211A Abrasion, right knee, initial encounter; Z3A.01 Less than 8 weeks gestation of pregnancy; Z72.0 Tobacco use
CPT/HCPCS: 76801; 76801-26; 76817; 76817-26; 99283; 99284-25

== ENCOUNTER 2021-10-17 18:03 | Emergency (ER) | payer MEDICAID ==
[2021-10-17 18:17] VITALS: BP 130/74; PULSE 77
[2021-10-17] MEDS ORDERED: fentaNYL 100 MCG/2 ML SDV IVPUSH ONE (18:54)
[2021-10-17] MEDS ORDERED: Sodium Chloride 0.9% 10 ML Syringe FLUSH PRN (18:54)
[2021-10-17] MEDS ORDERED: Lactated Ringers 1,000 ML IV ONE (18:54)
[2021-10-17] MEDS ORDERED: LORazepam 2 MG/ML SDV IVPUSH ONE (20:10)
== END 2021-10-17 20:45 | disposition home or self-care (01) ==
LOC: JP.ED 18:03
DX: O03.9 Complete or unspecified spontaneous abortion without complication (principal); Z88.8 Allergy status to other drugs, medicaments and biological substances
CPT/HCPCS: 36415; 80048; 85025; 96374; 96375; 99284; J2060; J3010; J7120

== ENCOUNTER 2022-07-05 01:03 | Emergency (ER) | payer MEDICAID ==
[2022-07-05 02:50] LABS: CORONAVIRUS COVID-19 NAA NEGATIVE (NEGATIVE)
[2022-07-05 02:53] LABS: ESTIMATED GFR 125 mL/min (>60)
[2022-07-05 03:50] VITALS: BP 122/80; PULSE 64
== END 2022-07-05 04:11 | disposition home or self-care (01) ==
LOC: JP.ED 01:03
DX: B34.9 Viral infection, unspecified (principal); Z72.0 Tobacco use; Z88.8 Allergy status to other drugs, medicaments and biological substances; Z20.822 Contact with and (suspected) exposure to COVID-19
CPT/HCPCS: 0241U; 36415; 80053; 85025; 86140; 99284

== ENCOUNTER 2022-07-17 15:23 | Emergency (ER) | payer MEDICAID ==
[2022-07-17 15:31] VITALS: BP 132/93; PULSE 78
[2022-07-17] MEDS ORDERED: Nitrofurantoin Monohydrate/Macrocrystalline 100 MG Cap PO ONE (17:24)
[2022-07-17] MEDS ORDERED: Acetaminophen/HYDROcodone 325-5 MG Tab PO ONE (18:04)
== END 2022-07-17 18:32 | disposition home or self-care (01) ==
LOC: JP.ED 15:23
DX: N30.00 Acute cystitis without hematuria (principal); M54.42 Lumbago with sciatica, left side; Z88.8 Allergy status to other drugs, medicaments and biological substances; Z72.0 Tobacco use
CPT/HCPCS: 74176; 81001; 81025; 87086; 99284; A9270

== ENCOUNTER 2023-05-05 14:22 | Emergency (ER) | payer MEDICAID ==
[2023-05-05 16:55] VITALS: BP 109/68; PULSE 63
== END 2023-05-05 16:57 | disposition home or self-care (01) ==
LOC: JP.ED 14:22
DX: O26.851 Spotting complicating pregnancy, first trimester (principal); Z3A.11 11 weeks gestation of pregnancy; Z88.8 Allergy status to other drugs, medicaments and biological substances
CPT/HCPCS: 36415; 84702; 99284

== ENCOUNTER 2023-06-08 12:23 | Emergency (ER) | payer MEDICAID ==
[2023-06-08 13:14] VITALS: BP 111/69; PULSE 89
[2023-06-08 14:33] LABS: CORONAVIRUS COVID-19 NAA NEGATIVE (NEGATIVE); INFLUENZA A NAA NEGATIVE (NEGATIVE); INFLUENZA B NAA NEGATIVE (NEGATIVE); RESPIRATORY SYNCYTIAL VIR NAA NEGATIVE (NEGATIVE)
== END 2023-06-08 14:56 | disposition home or self-care (01) ==
LOC: JP.ED 12:23
DX: J06.9 Acute upper respiratory infection, unspecified (principal); Z88.8 Allergy status to other drugs, medicaments and biological substances
CPT/HCPCS: 0241U; 99284

== ENCOUNTER 2023-07-19 11:50 | Emergency (ER) | payer MEDICAID ==
[2023-07-19 11:58] VITALS: BP 113/62; PULSE 82
[2023-07-19] MEDS ORDERED: Lactated Ringers 1,000 ML IV ONE ×2 (12:21→13:19)
[2023-07-19] MEDS ORDERED: Ondansetron 4 MG/2 ML SDV IVPUSH ONE (12:21)
[2023-07-19] MEDS ORDERED: Sodium Chloride 0.9% 10 ML Syringe FLUSH PRN (12:21)
[2023-07-19 12:29] LABS: BASOPHILS ABSOLUTE AUTO 0.03 K/uL (0.00-0.10); BASOPHILS PERCENT AUTO 0.3 % (0.1-1.3); EOSINOPHILS ABSOLUTE AUTO 0.05 K/uL (0.00-0.40); EOSINOPHILS PERCENT AUTO 0.5 % (0.0-5.4); HEMOGLOBIN 12.6 g/dL (11.2-15.5); IMMATURE GRAN ABSOLUTE AUTO 0.05 K/uL (0.00-0.23); IMMATURE GRAN PERCENT AUTO 0.5 % (0.0-0.7); LYMPHOCYTES ABSOLUTE AUTO 0.98 K/uL (0.8-3.3); LYMPHOCYTES PERCENT AUTO 9.3 % (11.4-47.7); MEAN CORPUSCULAR HEMOGLOBIN 33.3 pg (31.6-35.5); MEAN CORPUSCULAR VOLUME 92.6 fL (81.4-99.0); MONOCYTES ABSOLUTE AUTO 0.77 K/uL (0.20-0.90); MONOCYTES PERCENT AUTO 7.3 % (3.3-12.6); NEUTROPHILS ABSOLUTE AUTO 8.66 K/uL (1.0-7.6); NEUTROPHILS PERCENT AUTO 82.1 % (40.0-78.1); PLATELET COUNT,PLT 215 K/uL (130-375); RED BLOOD CELL COUNT 3.78 M/uL (3.77-5.24); WHITE BLOOD CELL COUNT,WBC 10.5 K/uL (3.2-11.0)
[2023-07-19 12:39] LABS: BILIRUBIN,URINE NEGATIVE (NEGATIVE); COLOR,URINE YELLOW (YELLOW); GLUCOSE,URINE NEGATIVE (NEGATIVE); KETONES,URINE NEGATIVE (NEGATIVE); LEUKOCYTE ESTERASE,URINE NEGATIVE (NEGATIVE); NITRITE,URINE NEGATIVE (NEGATIVE); OCCULT BLOOD,URINE NEGATIVE (NEGATIVE); PROTEIN,URINE TRACE mg/dL (NEGATIVE); UROBILINOGEN,URINE 0.2 EU/dL (0.2-1.0)
[2023-07-19 12:43] LABS: APPEARANCE,URINE CLOUDY (CLEAR); BACTERIA,URINE MANY; EPITHELIAL CELLS,URINE MANY; MUCUS,URINE FEW; RBC,URINE 0-5 (0-5)
[2023-07-19 12:44] LABS: AMORPHOUS SEDIMENT,URINE NOT SEEN
[2023-07-19 12:44] LABS: CALCIUM 8.5 mg/dL (8.5-10.1); CREATININE 0.4 mg/dL (0.6-1.0); EST CRCL DRUG DOSING (CG) 165.06 mL/min; POTASSIUM,K 4.2 mmol/L (3.6-5.2)
[2023-07-19 12:45] LABS: ANION GAP 14.2 mmol/L (5.0-14.0)
[2023-07-19] MEDS ORDERED: Prochlorperazine 10 MG/2 ML SDV IVPUSH ONE (13:36)
== END 2023-07-19 14:50 | disposition home or self-care (01) ==
LOC: JP.ED 11:50
DX: O21.9 Vomiting of pregnancy, unspecified (principal); O99.332 Smoking (tobacco) complicating pregnancy, second trimester; F17.210 Nicotine dependence, cigarettes, uncomplicated; Z88.8 Allergy status to other drugs, medicaments and biological substances; Z3A.21 21 weeks gestation of pregnancy
CPT/HCPCS: 36415; 80048; 81001; 85025; 96361; 96374; 96375; 99284; 99284-25; J0780; J2405; J7120

== ENCOUNTER 2023-08-15 02:01 | Emergency (ER) | payer MEDICAID ==
[2023-08-15 02:36] VITALS: BP 110/68; PULSE 89
== END 2023-08-15 03:12 | disposition home or self-care (01) ==
LOC: JP.ED 02:01
DX: O99.612 Diseases of the digestive system complicating pregnancy, second trimester (principal); K04.7 Periapical abscess without sinus; Z88.8 Allergy status to other drugs, medicaments and biological substances; Z3A.22 22 weeks gestation of pregnancy
CPT/HCPCS: 99282; 99283

== ENCOUNTER 2023-08-15 12:14 | Emergency (ER) | payer MEDICAID ==
[2023-08-15 13:31] VITALS: BP 132/80; PULSE 93
== END 2023-08-15 14:04 | disposition home or self-care (01) ==
LOC: JP.ED 12:14
DX: K03.81 Cracked tooth (principal); F17.210 Nicotine dependence, cigarettes, uncomplicated; Z88.8 Allergy status to other drugs, medicaments and biological substances
CPT/HCPCS: 99282

== ENCOUNTER 2023-09-21 19:50 | Emergency (ER) | payer MEDICAID ==
[2023-09-21 20:24] LABS: APPEARANCE,URINE CLEAR (CLEAR); BILIRUBIN,URINE NEGATIVE (NEGATIVE); COLOR,URINE YELLOW (YELLOW); GLUCOSE,URINE NEGATIVE (NEGATIVE); KETONES,URINE NEGATIVE (NEGATIVE); LEUKOCYTE ESTERASE,URINE NEGATIVE (NEGATIVE); NITRITE,URINE NEGATIVE (NEGATIVE); OCCULT BLOOD,URINE NEGATIVE (NEGATIVE); PROTEIN,URINE NEGATIVE (NEGATIVE); UROBILINOGEN,URINE 0.2 EU/dL (0.2-1.0)
[2023-09-21 20:30] LABS: AMORPHOUS SEDIMENT,URINE NOT SEEN; BACTERIA,URINE MODERATE; EPITHELIAL CELLS,URINE FEW; MUCUS,URINE NOT SEEN; RBC,URINE 0-5 (0-5); WBC,URINE 0-5 (0-5)
[2023-09-21] MEDS: Sodium Chloride 0.9% 1,000 ML IV SCH (21:39)
[2023-09-21 22:41] VITALS: BP 106/64; PULSE 76
== END 2023-09-21 22:45 | disposition home or self-care (01) ==
LOC: JP.ED 19:50
DX: O26.891 Other specified pregnancy related conditions, first trimester (principal); R10.9 Unspecified abdominal pain; Z3A.30 30 weeks gestation of pregnancy
CPT/HCPCS: 81001; 84112; 99284; J7030; 99283

== ENCOUNTER 2023-11-16 11:20 | Emergency (ER) | payer MEDICAID ==
[2023-11-16 12:10] LABS: APPEARANCE,URINE SLIGHTLY CLOUDY (CLEAR); BACTERIA,URINE MANY; BILIRUBIN,URINE NEGATIVE (NEGATIVE); COLOR,URINE YELLOW (YELLOW); EPITHELIAL CELLS,URINE MANY; GLUCOSE,URINE NEGATIVE (NEGATIVE); KETONES,URINE NEGATIVE (NEGATIVE); LEUKOCYTE ESTERASE,URINE NEGATIVE (NEGATIVE); NITRITE,URINE NEGATIVE (NEGATIVE); OCCULT BLOOD,URINE NEGATIVE (NEGATIVE); PROTEIN,URINE NEGATIVE (NEGATIVE); RBC,URINE 0-5 (0-5); WBC,URINE 0-5 (0-5)
[2023-11-16 12:11] LABS: AMORPHOUS SEDIMENT,URINE NOT SEEN; MUCUS,URINE FEW
[2023-11-16] MEDS: Acetaminophen 325 MG Tab PO ONE (12:14)
[2023-11-16 12:21] LABS: BASOPHILS PERCENT AUTO 0.2 % (0.1-1.3); EOSINOPHILS ABSOLUTE AUTO 0.04 K/uL (0.00-0.40); EOSINOPHILS PERCENT AUTO 0.4 % (0.0-5.4); HEMATOCRIT 34.8 % (34.3-46.0); HEMOGLOBIN 12.4 g/dL (11.2-15.5); IMMATURE GRAN ABSOLUTE AUTO 0.05 K/uL (0.00-0.23); IMMATURE GRAN PERCENT AUTO 0.5 % (0.0-0.7); LYMPHOCYTES ABSOLUTE AUTO 1.26 K/uL (0.8-3.3); LYMPHOCYTES PERCENT AUTO 12.9 % (11.4-47.7); MEAN CORPUSCULAR HEMOGLOBIN 32.4 pg (31.6-35.5); MEAN CORPUSCULAR HGB CONC 35.6 g/dL (31.6-35.5); MEAN CORPUSCULAR VOLUME 90.9 fL (81.4-99.0); MONOCYTES ABSOLUTE AUTO 0.84 K/uL (0.20-0.90); MONOCYTES PERCENT AUTO 8.6 % (3.3-12.6); NEUTROPHILS ABSOLUTE AUTO 7.53 K/uL (1.0-7.6); NEUTROPHILS PERCENT AUTO 77.4 % (40.0-78.1); PLATELET COUNT,PLT 183 K/uL (130-375); RED BLOOD CELL COUNT 3.83 M/uL (3.77-5.24); WHITE BLOOD CELL COUNT,WBC 9.7 K/uL (3.2-11.0)
[2023-11-16 12:29] LABS: BASOPHILS ABSOLUTE AUTO 0.02 K/uL (0.00-0.10)
[2023-11-16 12:38] LABS: INR 0.9
[2023-11-16 12:42] LABS: A/G RATIO 0.7 (1.2-2.2); ALANINE AMINOTRANSFERASE,ALT 22 U/L (12-78); ALBUMIN 2.5 g/dL (3.4-5.0); ALKALINE PHOSPHATASE 172 U/L (46-116); ASPARTATE AMNIOTRANSFERASE,AST 23 U/L (15-37); BILIRUBIN TOTAL 0.2 mg/dL (0.2-1.0); BLOOD UREA NITROGEN,BUN 7 mg/dL (7-18); CALCIUM 9.3 mg/dL (8.5-10.1); CARBON DIOXIDE,CO2 23 mmol/L (21-32); CHLORIDE,CL 103 mmol/L (100-108); CREATININE 0.5 mg/dL (0.6-1.0); EST CRCL DRUG DOSING (CG) 130.92 mL/min; ESTIMATED GFR 134 mL/min (>60); GLUCOSE RANDOM 83 mg/dL (74-106); POTASSIUM,K 3.9 mmol/L (3.6-5.2); PROTEIN TOTAL,TP 6.3 g/dL (6.4-8.2); SODIUM,NA 139 mmol/L (140-148)
[2023-11-16 12:43] LABS: ANION GAP 16.9 mmol/L (5.0-14.0)
[2023-11-16 12:44] VITALS: BP 127/81; PULSE 80
== END 2023-11-16 13:10 | disposition home or self-care (01) ==
LOC: JP.ED 11:20
DX: O99.893 Other specified diseases and conditions complicating puerperium (principal); N89.8 Other specified noninflammatory disorders of vagina; O99.333 Smoking (tobacco) complicating pregnancy, third trimester; F17.210 Nicotine dependence, cigarettes, uncomplicated; Z3A.38 38 weeks gestation of pregnancy; Z88.8 Allergy status to other drugs, medicaments and biological substances
CPT/HCPCS: 36415; 80053; 81001; 84112; 84550; 85025; 85610; 99284; A9270

== ENCOUNTER 2023-11-24 21:53 | Emergency (ER) | payer MEDICAID ==
[2023-11-24 22:20] LABS: BASOPHILS ABSOLUTE AUTO 0.03 K/uL (0.00-0.10); BASOPHILS PERCENT AUTO 0.3 % (0.1-1.3); EOSINOPHILS PERCENT AUTO 1.8 % (0.0-5.4); HEMOGLOBIN 11.9 g/dL (11.2-15.5); IMMATURE GRAN ABSOLUTE AUTO 0.05 K/uL (0.00-0.23); IMMATURE GRAN PERCENT AUTO 0.5 % (0.0-0.7); LYMPHOCYTES ABSOLUTE AUTO 1.99 K/uL (0.8-3.3); LYMPHOCYTES PERCENT AUTO 18.3 % (11.4-47.7); MEAN CORPUSCULAR HEMOGLOBIN 32.2 pg (31.6-35.5); MEAN CORPUSCULAR VOLUME 91.9 fL (81.4-99.0); MONOCYTES ABSOLUTE AUTO 0.87 K/uL (0.20-0.90); NEUTROPHILS ABSOLUTE AUTO 7.73 K/uL (1.0-7.6); NEUTROPHILS PERCENT AUTO 71.1 % (40.0-78.1); PLATELET COUNT,PLT 259 K/uL (130-375); WHITE BLOOD CELL COUNT,WBC 10.9 K/uL (3.2-11.0)
[2023-11-24 22:44] LABS: A/G RATIO 0.6 (1.2-2.2); ALANINE AMINOTRANSFERASE,ALT 113 U/L (12-78); ALBUMIN 2.5 g/dL (3.4-5.0); ALKALINE PHOSPHATASE 129 U/L (46-116); AMYLASE 38 U/L (25-115); ASPARTATE AMNIOTRANSFERASE,AST 78 U/L (15-37); BILIRUBIN TOTAL 0.2 mg/dL (0.2-1.0); BLOOD UREA NITROGEN,BUN 12 mg/dL (7-18); CALCIUM 8.8 mg/dL (8.5-10.1); CARBON DIOXIDE,CO2 25 mmol/L (21-32); CHLORIDE,CL 104 mmol/L (100-108); CREATININE 0.6 mg/dL (0.6-1.0); ESTIMATED GFR 128 mL/min (>60); GLUCOSE RANDOM 82 mg/dL (74-106); POTASSIUM,K 4.1 mmol/L (3.6-5.2); PROTEIN TOTAL,TP 6.5 g/dL (6.4-8.2); SODIUM,NA 138 mmol/L (140-148)
[2023-11-24] MEDS: Sodium Chloride 0.9% 500 ML IV SCH (22:44)
[2023-11-24 22:45] LABS: ANION GAP 13.1 mmol/L (5.0-14.0)
[2023-11-24 22:47] LABS: LACTIC ACID 0.5 mmol/L (0.4-2.0)
[2023-11-25] MEDS: Acetaminophen/Codeine 300-30 MG Tab PO ONE (00:03)
[2023-11-25 00:05] LABS: APPEARANCE,URINE CLEAR (CLEAR); BILIRUBIN,URINE NEGATIVE (NEGATIVE); COLOR,URINE YELLOW (YELLOW); GLUCOSE,URINE NEGATIVE (NEGATIVE); KETONES,URINE NEGATIVE (NEGATIVE); LEUKOCYTE ESTERASE,URINE MODERATE (NEGATIVE); NITRITE,URINE NEGATIVE (NEGATIVE); OCCULT BLOOD,URINE MODERATE (NEGATIVE); PH,URINE 6.5 (5.0-8.0); PROTEIN,URINE NEGATIVE (NEGATIVE); UROBILINOGEN,URINE 0.2 EU/dL (0.2-1.0)
[2023-11-25 00:10] LABS: AMORPHOUS SEDIMENT,URINE NOT SEEN; BACTERIA,URINE MODERATE; EPITHELIAL CELLS,URINE MODERATE; MUCUS,URINE NOT SEEN; RBC,URINE 0-5 (0-5)
[2023-11-25 02:13] VITALS: BP 112/84; PULSE 81
== END 2023-11-25 01:55 | disposition home or self-care (01) ==
LOC: MERGE 21:53 → JP.ED 21:53 → EDBD 21:53 → JP.ED 11-25 01:55
DX: O72.1 Other immediate postpartum hemorrhage (principal); Z88.8 Allergy status to other drugs, medicaments and biological substances
CPT/HCPCS: 36415; 76856; 80053; 81001; 82150; 83605; 83690; 84702; 84703; 85025; 96360; 96361; 99283; 99284-25; A9270-GY; J7030

== ENCOUNTER 2024-02-19 05:03 | Emergency (ER) | payer MEDICAID ==
[2024-02-19 05:30] LABS: BASOPHILS ABSOLUTE AUTO 0.04 K/uL (0.00-0.10); BASOPHILS PERCENT AUTO 0.4 % (0.1-1.3); EOSINOPHILS ABSOLUTE AUTO 0.15 K/uL (0.00-0.40); EOSINOPHILS PERCENT AUTO 1.3 % (0.0-5.4); HEMATOCRIT 36.9 % (34.3-46.0); HEMOGLOBIN 13.3 g/dL (11.2-15.5); IMMATURE GRAN ABSOLUTE AUTO 0.04 K/uL (0.00-0.23); IMMATURE GRAN PERCENT AUTO 0.4 % (0.0-0.7); LYMPHOCYTES ABSOLUTE AUTO 2.87 K/uL (0.8-3.3); LYMPHOCYTES PERCENT AUTO 25.2 % (11.4-47.7); MEAN CORPUSCULAR HEMOGLOBIN 30.9 pg (31.6-35.5); MEAN CORPUSCULAR VOLUME 85.8 fL (81.4-99.0); MONOCYTES ABSOLUTE AUTO 1.16 K/uL (0.20-0.90); MONOCYTES PERCENT AUTO 10.2 % (3.3-12.6); NEUTROPHILS ABSOLUTE AUTO 7.15 K/uL (1.0-7.6); NEUTROPHILS PERCENT AUTO 62.5 % (40.0-78.1); PLATELET COUNT,PLT 245 K/uL (130-375); WHITE BLOOD CELL COUNT,WBC 11.4 K/uL (3.2-11.0)
[2024-02-19 05:33] LABS: BILIRUBIN,URINE NEGATIVE (NEGATIVE); COLOR,URINE YELLOW (YELLOW); GLUCOSE,URINE NEGATIVE (NEGATIVE); KETONES,URINE NEGATIVE (NEGATIVE); LEUKOCYTE ESTERASE,URINE MODERATE (NEGATIVE); NITRITE,URINE NEGATIVE (NEGATIVE); OCCULT BLOOD,URINE MODERATE (NEGATIVE); PROTEIN,URINE 100 mg/dL (NEGATIVE); UROBILINOGEN,URINE 0.2 EU/dL (0.2-1.0)
[2024-02-19] MEDS: Ketorolac 30 MG/ML SDV IM ONE (05:36)
[2024-02-19 05:39] LABS: AMORPHOUS SEDIMENT,URINE NOT SEEN; APPEARANCE,URINE CLOUDY (CLEAR); BACTERIA,URINE FEW; EPITHELIAL CELLS,URINE RARE; MUCUS,URINE NOT SEEN; RBC,URINE 20-30 (0-5); WBC,URINE SEMI-PACKED (0-5)
[2024-02-19 05:51] LABS: ALANINE AMINOTRANSFERASE,ALT 22 U/L (12-78); ALBUMIN 3.6 g/dL (3.4-5.0); ALKALINE PHOSPHATASE 123 U/L (46-116); ANION GAP 12.7 mmol/L (5.0-14.0); ASPARTATE AMNIOTRANSFERASE,AST 15 U/L (15-37); BILIRUBIN TOTAL 0.3 mg/dL (0.2-1.0); BLOOD UREA NITROGEN,BUN 16 mg/dL (7-18); CALCIUM 9.8 mg/dL (8.5-10.1); CARBON DIOXIDE,CO2 27 mmol/L (21-32); CHLORIDE,CL 103 mmol/L (100-108); CREATININE 0.8 mg/dL (0.6-1.0); EST CRCL DRUG DOSING (CG) 81.82 mL/min; ESTIMATED GFR 105 mL/min (>60); GLUCOSE RANDOM 101 mg/dL (74-106); POTASSIUM,K 3.7 mmol/L (3.6-5.2); PROTEIN TOTAL,TP 7.4 g/dL (6.4-8.2); SODIUM,NA 139 mmol/L (140-148)
[2024-02-19] MEDS: cefTRIAXone 2 GM in Sodium Chloride 0.9% 50 ML IV ONE (08:31)
[2024-02-19 09:08] VITALS: BP 123/75; PULSE 78
== END 2024-02-19 09:05 | disposition home or self-care (01) ==
LOC: JP.ED 05:03
DX: N13.2 Hydronephrosis with renal and ureteral calculous obstruction (principal); N39.0 Urinary tract infection, site not specified; Z88.8 Allergy status to other drugs, medicaments and biological substances
CPT/HCPCS: 36415; 74176; 80053; 81001; 83605; 83690; 85025; 96365; 96372; 99284; J0696; J1885; J3490; 99285

== ENCOUNTER 2025-01-25 20:09 | Emergency (ER) | payer MEDICAID ==
[2025-01-25 20:33] VITALS: BP 111/75; PULSE 70
[2025-01-25] MEDS: Ketorolac 30 MG/ML SDV IM ONE (20:49)
[2025-01-25 21:06] LABS: APPEARANCE,URINE SLIGHTLY CLOUDY (CLEAR); BILIRUBIN,URINE NEGATIVE (NEGATIVE); COLOR,URINE YELLOW (YELLOW); GLUCOSE,URINE NEGATIVE (NEGATIVE); KETONES,URINE NEGATIVE (NEGATIVE); LEUKOCYTE ESTERASE,URINE NEGATIVE (NEGATIVE); NITRITE,URINE NEGATIVE (NEGATIVE); OCCULT BLOOD,URINE NEGATIVE (NEGATIVE); PH,URINE 6.5 (5.0-8.0); PROTEIN,URINE NEGATIVE (NEGATIVE); UROBILINOGEN,URINE 0.2 EU/dL (0.2-1.0)
[2025-01-25 21:13] LABS: AMORPHOUS SEDIMENT,URINE NOT SEEN; BACTERIA,URINE FEW; EPITHELIAL CELLS,URINE FEW; MUCUS,URINE NOT SEEN; RBC,URINE 0-5 (0-5); WBC,URINE 0-5 (0-5)
== END 2025-01-25 21:38 | disposition home or self-care (01) ==
LOC: JP.ED 20:09
DX: S30.0XXA Contusion of lower back and pelvis, initial encounter (principal); Z88.8 Allergy status to other drugs, medicaments and biological substances; W19.XXXA Unspecified fall, initial encounter
CPT/HCPCS: 72220; 81001; 96372; 99283; J1885; 99282

== ENCOUNTER 2025-04-30 15:21 | Emergency (ER) | payer MEDICAID ==
[2025-04-30 15:47] VITALS: BP 135/64; PULSE 92
== END 2025-04-30 17:06 | disposition left against medical advice (07) ==
LOC: JP.ED 15:21
DX: Z53.21 Procedure and treatment not carried out due to patient leaving prior to being seen by health care provider (principal)

== ENCOUNTER 2025-04-30 19:34 | Emergency (ER) | payer MEDICAID ==
[2025-04-30 20:39] LABS: BASOPHILS ABSOLUTE AUTO 0.04 K/uL (0.00-0.10); BASOPHILS PERCENT AUTO 0.4 % (0.1-1.3); EOSINOPHILS ABSOLUTE AUTO 0.11 K/uL (0.00-0.40); EOSINOPHILS PERCENT AUTO 1.2 % (0.0-5.4); IMMATURE GRAN PERCENT AUTO 0.2 % (0.0-0.7); LYMPHOCYTES ABSOLUTE AUTO 2.07 K/uL (0.8-3.3); LYMPHOCYTES PERCENT AUTO 23.3 % (11.4-47.7); MONOCYTES ABSOLUTE AUTO 0.84 K/uL (0.20-0.90); MONOCYTES PERCENT AUTO 9.4 % (3.3-12.6); NEUTROPHILS ABSOLUTE AUTO 5.81 K/uL (1.0-7.6); NEUTROPHILS PERCENT AUTO 65.5 % (40.0-78.1); PLATELET COUNT,PLT 274 K/uL (130-375); RED BLOOD CELL COUNT 3.98 M/uL (3.77-5.24); WHITE BLOOD CELL COUNT,WBC 8.9 K/uL (3.2-11.0)
[2025-04-30] MEDS: Ondansetron 4 MG/2 ML SDV IVPUSH ONE (20:39)
[2025-04-30] MEDS: Sodium Chloride 0.9% 10 ML Syringe FLUSH PRN (20:40)
[2025-04-30 20:42] LABS: IMMATURE GRAN ABSOLUTE AUTO 0.02 K/uL (0.00-0.23)
[2025-04-30 20:56] LABS: BLOOD UREA NITROGEN,BUN 9.0 mg/dL (7-18); CARBON DIOXIDE,CO2 29.0 mmol/L (21-32); CHLORIDE,CL 103.0 mmol/L (100-108); CREATININE 0.6 mg/dL (0.6-1.0); EST CRCL DRUG DOSING (CG) 108.16 mL/min; ESTIMATED GFR 128.0 mL/min (>60); GLUCOSE RANDOM 78.0 mg/dL (74-106); POTASSIUM,K 3.4 mmol/L (3.6-5.2); SODIUM,NA 141.0 mmol/L (140-148)
[2025-04-30 21:30] LABS: APPEARANCE,URINE CLOUDY (CLEAR); GLUCOSE,URINE NEGATIVE (NEGATIVE); OCCULT BLOOD,URINE NEGATIVE (NEGATIVE)
[2025-04-30 21:37] LABS: SQUAMOUS EPITHELIAL CELLS,UR MANY /HPF; UROTHELIAL CELLS,URINE NOT SEEN /HPF
[2025-04-30 21:45] VITALS: BP 122/74; PULSE 72
== END 2025-04-30 22:17 | disposition home or self-care (01) ==
LOC: JP.ED 19:34
DX: O99.891 Other specified diseases and conditions complicating pregnancy (principal); R11.2 Nausea with vomiting, unspecified; E86.0 Dehydration; F17.200 Nicotine dependence, unspecified, uncomplicated; Z88.8 Allergy status to other drugs, medicaments and biological substances; Z79.899 Other long term (current) drug therapy; Z3A.00 Weeks of gestation of pregnancy not specified
CPT/HCPCS: 36415; 80048; 81001; 84702; 85025; 96361; 96374; 99284; J2405; J7030

== ENCOUNTER 2025-05-20 01:39 | Emergency (ER) | payer MEDICAID ==
[2025-05-20 04:01] LABS: APPEARANCE,URINE CLEAR (CLEAR); GLUCOSE,URINE NEGATIVE (NEGATIVE); OCCULT BLOOD,URINE TRACE-INTACT (NEGATIVE)
[2025-05-20 04:11] LABS: SQUAMOUS EPITHELIAL CELLS,UR MODERATE /HPF; UROTHELIAL CELLS,URINE NOT SEEN /HPF
[2025-05-20 04:24] VITALS: BP 119/72; PULSE 88
== END 2025-05-20 04:20 | disposition home or self-care (01) ==
LOC: JP.ED 01:39
DX: O9A.211 Injury, poisoning and certain other consequences of external causes complicating pregnancy, first trimester (principal); S30.1XXA Contusion of abdominal wall, initial encounter; Z88.8 Allergy status to other drugs, medicaments and biological substances; Z79.899 Other long term (current) drug therapy; Z3A.09 9 weeks gestation of pregnancy; W01.0XXA Fall on same level from slipping, tripping and stumbling without subsequent striking against object, initial encounter
CPT/HCPCS: 76801; 81001; 99284; A9270-GY